=== PATIENT | female | born 1940 | race Caucasian/White ===

== ENCOUNTER 2022-07-27 08:19 | Observation (INO) | payer MEDICARE ==
[2022-07-27] MEDS ORDERED: SODIUM CHLORIDE 0.9% 500 ML 500 ML IV STA (08:43)
[2022-07-27] MEDS ORDERED: MECLIZINE 25 MG TAB PO STA (08:45)
[2022-07-27] MEDS ORDERED: METOCLOPRAMIDE 5 MG/ML 2 ML VIAL IVP STA (08:47)
--- NOTE | 2022-07-27 08:56 | ED ---
General Adult HPI - General Chief complaint: Dizziness Stated complaint: vertigo Time Seen by Provider: 07/27/22 08:20 Source: patient, EMS, RN notes reviewed, old records reviewed Mode of arrival: EMS Limitations: no limitations - History of Present Illness Initial comments: This is an 82-year-old female presents emergency Department complaining of bruce sampson. Patient states started at the end of June and she wants R primary medical care doctor and they cleaned out her ears and gave her Antivert did seem to help. Patient states however this morning she woke up at 3 AM and she was spinning and very nauseated and began to vomit. Patient denies any headache. Patient denies any numbness weakness. Patient states he Antivert today did not help. Patient denies any ear pain decreased hearing or tinnitus. Patient denies any chest pain or palpitations. Patient said difficulty breathing shortest breath per patient has any abdominal pain. - Related Data Allergies Allergy/AdvReac Type Severity Reaction Status Date / Time No Known Allergies Allergy Verified 07/27/22 08:25 Review of Systems ROS Statement: Those systems with pertinent positive or pertinent negative responses have been documented in the HPI. ROS Other: All systems not noted in ROS Statement are negative. Past Medical History Past Medical History: Hyperlipidemia Additional Past Medical History / Comment(s): glaucoma History of Any Multi-Drug Resistant Organisms: None Reported Past Surgical History: Cholecystectomy, Tonsillectomy Past Psychological History: No Psychological Hx Reported Smoking Status: Never smoker Past Alcohol Use History: Occasional Past Drug Use History: None Reported General Exam - General Exam Comments Initial Comments: GENERAL: Patient is well-developed and well-nourished. Patient is nontoxic and well- hydrated and is in mild distress. ENT: Neck is soft and supple. No significant lymphadenopathy is noted. Oropharynx is clear. Moist mucous membranes. Neck has full range of motion without eliciting any pain. EYES: The sclera were anicteric and conjunctiva were pink and moist. Extraocular movements were intact and pupils were equal round and reactive to light. Eyelids were unremarkable. PULMONARY: Unlabored respirations. Good breath sounds bilaterally. No audible rales rhonchi or wheezing was noted. CARDIOVASCULAR: There is a regular rate and rhythm without any murmurs gallops or rubs. ABDOMEN: Soft and nontender with normal bowel sounds. SKIN: Skin is clear with no lesions or rashes and otherwise unremarkable. NEUROLOGIC: Patient is alert and oriented x3. Cranial nerves II through XII are grossly intact. Motor and sensory are also intact. Normal speech, volume and content. Symmetrical smile. Finger to nose testing is good bilaterally MUSCULOSKELETAL: Normal extremities with adequate strength and full range of motion. LYMPHATICS: No significant lymphadenopathy is noted PSYCHIATRIC: Normal psychiatric evaluation. Limitations: no limitations Course Vital Signs 07/27/22 08:20 Temperature 97.2 F L Pulse Rate 66 Respiratory 16 Rate Blood Pressure 176/77 O2 Sat by Pulse 99 Oximetry Medical Decision Making - Medical Decision Making EKG was interpreted by myself shows a sinus rhythm at 63 bpm NJ interval 150 QRS 190 QT intervals 436 QTC is 444. Patient's EKG shows Q waves from V1 through V3. Patient has no chest pain and has not expressed any chest pain recently. Patient also denies any shortness of breath. Was pt. sent in by a medical professional or institution (, PA, SELF DEFENSE INSTRUCTOR, urgent care, hospital, or usp...) When possible be specific @ -No Did you speak to anyone other than the patient for history (EMS, parent, family, police, friend...)? What history was obtained from this source @ -No Did you review nursing and triage notes (agree or disagree)? Why? @ -I reviewed and agree with nursing and triage notes Were old charts reviewed (outside hosp., previous admission, EMS record, old EKG, old radiological studies, urgent care reports/EKG's, usp records)? Report findings @ -No old charts were reviewed Differential Diagnosis (chest pain, altered mental status, abdominal pain women, abdominal pain men, vaginal bleeding, weakness, fever, dyspnea, syncope, headache, dizziness, GI bleed, back pain, seizure, CVA, palpatations, mental health, musculoskeletal)? @ -Differential Dizziness: Benign paroxysmal positional Vertigo, Menieres disease, otitis media, acoustic neuroma, vertebrobasilar insufficiency, cerebellar stroke, encephalitis, hypovolemic, arrhythmia, coronary artery syndrome, anemia, this is not meant to be an all-inclusive list EKG interpreted by me (3pts min.). @ -As above X-rays interpreted by me (1pt min.). @ -Chest x-ray was interpreted by myself shows no acute abnormality. CT interpreted by me (1pt min.). @ -CT of the brain was interpreted by myself. It showed no acute abnormality U/S interpreted by me (1pt. min.). @ -None done What testing was considered but not performed or refused? (CT, X-rays, U/S, labs)? Why? @ -None What meds were considered but not given or refused? Why? @ -None Did you discuss the management of the patient with other professionals (professionals i.e. , PA, SELF DEFENSE INSTRUCTOR, lab, RT, psych nurse, pediatric social worker, water and sewer systems superintendent, teacher, complaint evaluation officer, case mgr)? Give summary @ -I spoke with the [facility] agreed to admit the patient and the patient wrote admitting orders Was smoking cessation discussed for >3mins.? @ -No Was critical care preformed (if so, how long)? @ -No Were there social determinants of health that impacted care today? How? (Homelessness, low income, unemployed, alcoholism, drug addiction, transportation, low edu. Level, literacy, decrease access to med. care, assisted, rehab)? @ -No Was there de-escalation of care discussed even if they declined (Discuss DNR or withdrawal of care, Hospice)? DNR status @ -No What co-morbidities impacted this encounter? (DM, HTN, Smoking, COPD, CAD, Cancer, CVA, ARF, Chemo, Hep., AIDS, mental health diagnosis, sleep apnea, morbid obesity)? @ -None Was patient admitted / discharged? Hospital course, mention meds given and [place], prescriptions, significant lab abnormalities, going to OR and other pertinent info. @ -Patient came in with vertigo-like symptoms. She received Antivert and Valium and Reglan as well as a fluid bolus it did not help. I gave the patient scopolamine patch. That did not help. Patient had a CAT scan and chest x-ray both negative. Patient stated that she could not because she was too off balance and was afraid she would follow herself. Undiagnosed new problem with uncertain prognosis? @ -No Drug Therapy requiring intensive monitoring for toxicity (Heparin, Nitro, Insulin, Cardizem)? @ -No Were any procedures done? @ -No Diagnosis/symptom? @ -Vertigo intractable Acute, or Chronic, or Acute on Chronic? @ -Acute Uncomplicated (without systemic symptoms) or Complicated (systemic symptoms)? @ -Complicated Side effects of treatment? @ -No Exacerbation, Progression, or Severe Exacerbation? @ -No Poses a threat to life or bodily function? How? (Chest pain, [place], [place], pneumonia, PE, COPD, DKA, ARF, appy, cholecystitis, CVA, Diverticulitis, Homicidal, Suicidal, threat to staff... and all critical care pts) @ -No - Lab Data Result diagrams: 07/27/22 08:56 07/27/22 08:56 Lab Results 07/27/22 07/27/22 07/27/22 Range/Units 08:56 08:56 08:56 WBC 9.8 (3.8-10.6) k/uL RBC 4.92 (3.80-5.40) m/uL Hgb 14.6 (11.4-16.0) gm/dL Hct 42.9 (34.0-46.0) % MCV 87.3 (80.0-100.0) fL MCH 29.6 (25.0-35.0) pg MCHC 33.9 (31.0-37.0) g/dL RDW 12.5 (11.5-15.5) % Plt Count 286 (150-450) k/uL MPV 7.2 Neutrophils % 79 % Lymphocytes % 14 % Monocytes % 4 % Eosinophils % 2 % Basophils % 1 % Neutrophils # 7.7 (1.3-7.7) k/uL Lymphocytes # 1.3 (1.0-4.8) k/uL Monocytes # 0.4 (0-1.0) k/uL Eosinophils # 0.2 (0-0.7) k/uL Basophils # 0.1 (0-0.2) k/uL PT 10.2 (9.0-12.0) sec INR 1.0 (<1.2) APTT 19.9 L (22.0-30.0) sec Sodium 138 (137-145) mmol/L Potassium 4.0 (3.5-5.1) mmol/L Chloride 104 (98-107) mmol/L Carbon Dioxide 27 (22-30) mmol/L Anion Gap 7 mmol/L BUN 19 H (7-17) mg/dL Creatinine 0.71 (0.52-1.04) mg/dL Est GFR (CKD-EPI)AfAm >90 (>60 ml/min/1.73 sqM) Est GFR (CKD-EPI)NonAf 81 (>60 ml/min/1.73 sqM) Glucose 135 H (74-99) mg/dL Calcium 9.4 (8.4-10.2) mg/dL Magnesium 2.1 (1.6-2.3) mg/dL Total Bilirubin 0.7 (0.2-1.3) mg/dL AST 32 (14-36) U/L ALT 32 (4-34) U/L Alkaline Phosphatase 56 (38-126) U/L Troponin I (0.000-0.034) ng/mL Total Protein 6.9 (6.3-8.2) g/dL Albumin 4.2 (3.5-5.0) g/dL 07/27/22 Range/Units 08:56 WBC (3.8-10.6) k/uL RBC (3.80-5.40) m/uL Hgb (11.4-16.0) gm/dL Hct (34.0-46.0) % MCV (80.0-100.0) fL MCH (25.0-35.0) pg MCHC (31.0-37.0) g/dL RDW (11.5-15.5) % Plt Count (150-450) k/uL MPV Neutrophils % % Lymphocytes % % Monocytes % % Eosinophils % % Basophils % % Neutrophils # (1.3-7.7) k/uL Lymphocytes # (1.0-4.8) k/uL Monocytes # (0-1.0) k/uL Eosinophils # (0-0.7) k/uL Basophils # (0-0.2) k/uL PT (9.0-12.0) sec INR (<1.2) APTT (22.0-30.0) sec Sodium (137-145) mmol/L Potassium (3.5-5.1) mmol/L Chloride (98-107) mmol/L Carbon Dioxide (22-30) mmol/L Anion Gap mmol/L BUN (7-17) mg/dL Creatinine (0.52-1.04) mg/dL Est GFR (CKD-EPI)AfAm (>60 ml/min/1.73 sqM) Est GFR (CKD-EPI)NonAf (>60 ml/min/1.73 sqM) Glucose (74-99) mg/dL Calcium (8.4-10.2) mg/dL Magnesium (1.6-2.3) mg/dL Total Bilirubin (0.2-1.3) mg/dL AST (14-36) U/L ALT (4-34) U/L Alkaline Phosphatase (38-126) U/L Troponin I <0.012 (0.000-0.034) ng/mL Total Protein (6.3-8.2) g/dL Albumin (3.5-5.0) g/dL Disposition Clinical Impression: Vertigo Disposition: ADMITTED IP TO THIS HOSP Referrals: None,Stated [REFERRING] - 1-2 days Time of Disposition: 10:43
[2022-07-27 09:06] LABS: Basophils # (A) 0.1 k/uL (0-0.2); Basophils % (A) 1 %; Eosinophils # (A) 0.2 k/uL (0-0.7); Eosinophils % (A) 2 %; HCT 42.9 % (34.0-46.0); HGB 14.6 gm/dL (11.4-16.0); Lymphocytes # (A) 1.3 k/uL (1.0-4.8); Lymphocytes % (A) 14 %; MCH 29.6 pg (25.0-35.0); MCHC 33.9 g/dL (31.0-37.0); MCV 87.3 fL (80.0-100.0); Mean Platelet Volume 7.2; Monocytes # (A) 0.4 k/uL (0-1.0); Monocytes % (A) 4 %; Neutrophils # (A) 7.7 k/uL (1.3-7.7); Neutrophils % (A) 79 %; Platelet Count 286 k/uL (150-450); RBC 4.92 m/uL (3.80-5.40); RDW 12.5 % (11.5-15.5); WBC 9.8 k/uL (3.8-10.6)
--- NOTE | 2022-07-27 09:11 | XR ---
EXAMINATION TYPE: XR chest 2V DATE OF EXAM: 07/27/2022 COMPARISON: NONE HISTORY: Chest pain. TECHNIQUE: Frontal and lateral views of the chest are obtained. FINDINGS: There is no focal air space opacity, pleural effusion, or pneumothorax seen. The cardiac silhouette size is within normal limits. The osseous structures are intact. Cholecystectomy clips a re present. IMPRESSION: No acute cardiopulmonary process.
[2022-07-27 09:19] LABS: ALT 32 U/L (4-34); AST 32 U/L (14-36); African American GFR (CKD) >90 (>60 ml/min/1.73 sqM); Albumin 4.2 g/dL (3.5-5.0); Alkaline Phosphatase 56 U/L (38-126); Anion Gap 7 mmol/L; Blood Urea Nitrogen 19 mg/dL (7-17); Calcium 9.4 mg/dL (8.4-10.2); Carbon Dioxide 27 mmol/L (22-30); Chloride 104 mmol/L (98-107); Glucose 135 mg/dL (74-99); Magnesium 2.1 mg/dL (1.6-2.3); Non-African American GFR(CKD) 81 (>60 ml/min/1.73 sqM); Sodium 138 mmol/L (137-145); Total Bilirubin 0.7 mg/dL (0.2-1.3); Total Protein 6.9 g/dL (6.3-8.2)
[2022-07-27 09:20] LABS: Prothrombin Time 10.2 sec (9.0-12.0)
--- NOTE | 2022-07-27 09:21 | CT ---
EXAMINATION TYPE: CT brain wo con CT DLP: 1091.4 mGycm, Automated exposure control for dose reduction was used. DATE OF EXAM: 07/27/2022 9:15 AM COMPARISON: None. CLINICAL INDICATION:Female, 82 years old with history of Ataxia, Dizziness. TECHNIQUE: Brain: Multiple axial CT images of the brain were obtained without IV contrast. Coronal and sagittal reformats reviewed. FINDINGS: Brain: Extra-axial spaces: No abnormal extra-axial fluid collections. Ventricular system: Within normal limits Cerebral parenchyma: No acute intraparenchymal hemorrhage or mass effect. The schilling-white junction is well differentiated. Cerebellum: Unremarkable. Mass effect: No evidence of midline shift. Intracranial vasculature: unremarkable Soft tissues: Normal. Calvarium/osseous structures: No depressed skull fracture. Paranasal sinuses and mastoid air cells: Minimal mucosal thickening of the bilateral maxillary sinuse s with minimal air-fluid level within the left sphenoid sinus. Visualized orbits: Bilateral aphakia. Scleral calcifications noted. IMPRESSION: No acute intracranial process.
[2022-07-27 09:31] LABS: Partial Thromboplastin Time 19.9 sec (22.0-30.0)
[2022-07-27] MEDS ORDERED: SCOPOLAMINE 1 MG/72 HR PATCH TRANSDERM STA (09:57)
[2022-07-27] MEDS ORDERED: SODIUM CHLORIDE 0.9% 1,000 ML IV ONE (10:48)
[2022-07-27] MEDS ORDERED: LORATADINE 10 MG TAB PO PRN (14:06)
[2022-07-27] MEDS: METOCLOPRAMIDE 5 MG/ML 2 ML VIAL IVP SCH ×2 (15:08→20:17)
[2022-07-27] MEDS: MECLIZINE 12.5 MG TAB PO SCH ×3 (15:09→20:20)
[2022-07-27] MEDS ORDERED: LORazepam 2 MG/ML INJ IV STA (15:20)
--- NOTE | 2022-07-27 15:34 | P.HPIM ---
History of Present Illness H&P Date: 07/27/22 This is a very pleasant 82-year-old female who presented to the emergency department with intractable nausea and extreme dizziness. Patient reports she follows with Dr. Angelia robin's [employer] in the outpatient setting with past medical history of hyperlipidemia glaucoma. Patient reports she saw her last week for some dizziness and was given Antivert along with Zyrtec and had flushing of her ears done as she reports she often gets a wax buildup and has had them flushed before. Patient reports she felt better at first although woke up last night with extreme difficulty in getting up severe dizziness and difficulty in ambulating and called her neighbor for help in calling 911. EKG shows sinus rhythm, chest x-ray shows no acute cardiopulmonary process, and brain CT showed no acute intracranial process. Patient was admitted under observation for vertigo. Review Of Systems: Constitutional: No fever, no chills, no night sweats. No weight change. No weakness, fatigue or lethargy. No daytime sleepiness. EENT: No headache. No blurred vision or double vision, no loss of vision. No loss of Hearing, no ringing in the ears, no dizziness. No nasal drainage or congestion. No epistaxis. No sore throat. Reports some buildup of wax occasionally Lungs: No shortness of breath, cough, no sputum production. No wheezing. Cardiovascular: No chest pain, no lower extremity edema. No palpitations. No paroxysmal nocturnal dyspnea. No orthopnea. No lightheadedness or dizziness. No syncopal episodes. Abdominal: No abdominal pain. No nausea, vomiting. No diarrhea. No constipa tion. No bloody or tarry stools.. No loss of appetite. Genitourinary: No dysuria, increased frequency, urgency. No urinary retention. Musculoskeletal: No myalgias. No muscle weakness, no gait dysfunction, no frequent falls. No back pain. No neck pain. Integumentary: No wounds, no lesions. No rash or pruritus. No unusual bruising. No change in hair or nails. Neurologic: No aphasia. No facial droop. No change in mentation. No head injury. No headache. No paralysis. No paresthesia. Reports extreme dizziness Psychiatric: No depression. No anxiety. No mood swings. Endocrine: No abnormal blood sugars. No weight change. No excessive sweating or thirst. No cold intolerance. PHYSICAL EXAMINATION: GENERAL: The patient is alert and oriented x4, Well developed, well nourished. HEENT: Pupils are round and equally reacting to light. EOMI. no scleral icterus. No conjunctival pallor. Normocephalic, atraumatic. No pharyngeal erythema. No thyromegaly. CARDIOVASCULAR: S1 and S2 muffled PULMONARY: diminished breath sounds bilaterally with no wheezing or rhonchi noted. ABDOMEN: soft. Nontender on exam. non-distended, normoactive bowel sounds. No palpable organomegaly. MUSCULOSKELETAL: No joint swelling or deformity. EXTREMITIES: No cyanosis, clubbing, or pedal edema. NEUROLOGICAL: Gross neurological examination did not reveal any focal deficits. SKIN: No rashes. Assessment: Dizziness, possible vertigo History of hyperlipidemia History of glaucoma Recent travels to [place] GI prophylaxis DVT prophylaxis Full code Plan: Recommend to continue with current medications and management and will consult neurology and appreciate input and recommendations with concerns of possible BPPV Patient did go to her primary care provider and had her ears flushed and started on Zyrtec along with Antivert although was as needed and was not taking them regularly and initially reports that worked at first although attempted to take it this morning when she woke up with severe nausea and dizziness and it did not help causing her to call 911 for help she felt she could not even stand up and walk Home medications reviewed and resumed Will await neurology recommendations, CT head was negative and labs were within normal limits Patient may likely need a referral to ENT in the outpatient setting and would recommend taking daily Zyrtec or Claritin The impression and plan of care has been dictated by Susy Chong, nurse practitioner as directed. Dr. Abebe MD I have performed a history and examination and MDM of this patient, discussed the same with the dictator, and agree with the dictator's assessment and plan as written ,documented as a scribe. Based on total visit time, I have performed more than 50% of the visit. Any additional findings or plans will be noted. Past Medical History Past Medical History: Hyperlipidemia Additional Past Medical History / Comment(s): glaucoma History of Any Multi-Drug Resistant Organisms: None Reported Past Surgical History: Cholecystectomy, Tonsillectomy Past Psychological History: No Psychological Hx Reported Smoking Status: Never smoker Past Alcohol Use History: Occasional Past Drug Use History: None Reported Medications and Allergies Home Medications Medication Instructions Recorded Confirmed Type Cetirizine HCl 10 mg PO DAILY PRN 07/27/22 07/27/22 History Latanoprost Ophth [Xalatan 0.005%] 1 drop BOTH EYES HS 07/27/22 07/27/22 History Meclizine HCl [Antivert] 25 mg PO Q8H PRN 07/27/22 07/27/22 History Simvastatin [Zocor] 20 mg PO HS 07/27/22 07/27/22 History Allergies Allergy/AdvReac Type Severity Reaction Status Date / Time No Known Allergies Allergy Verified 07/27/22 11:20 Physical Exam Vitals: Vital Signs Temp Pulse Resp BP Pulse Ox 07/27/22 11:00 87 20 164/80 97 07/27/22 10:00 86 20 132/65 99 07/27/22 09:00 82 18 176/77 99 07/27/22 08:20 97.2 F L 66 16 176/77 99 Intake and Output 07/26/22 07/27/22 07/27/22 22:59 06:59 14:59 Other: Weight 67.132 kg Results CBC & Chem 7: 07/27/22 08:56 07/27/22 08:56 Labs: Abnormal Lab Results - Last 24 Hours (Table) 07/27/22 07/27/22 Range/Units 08:56 08:56 APTT 19.9 L (22.0-30.0) sec BUN 19 H (7-17) mg/dL Glucose 135 H (74-99) mg/dL Thrombosis Risk Factor Assmnt - Choose All That Apply Each Factor Represents 1 point: Obesity (BMI >25) Each Risk Factor Represents 3 Points: Age 75 years or older Thrombosis Risk Factor Assessment Total Risk Factor Score: 4 Thrombosis Risk Factor Assessment Level: Moderate Risk Assessment and Plan Time with Patient: Greater than 30
[2022-07-27] MEDS ORDERED: ATORVASTATIN 10 MG TAB PO SCH (21:00)
[2022-07-27] MEDS ORDERED: LATANOPROST 0.005% OPHTH DROPS 2.5 ML BTL BOTH EYES SCH (21:00)
--- NOTE | 2022-07-27 23:42 | P.CNNES ---
History of Present Illness Consult date: 07/27/22 Requesting physician: Susy Chong Reason for Consult: Vertigo History of Present Illness: Patient is a 82-year-old female who came to the hospital by ambulance today at 8:19 AM for evaluation of new onset vertigo. Patient states that she was in [place] in the end of June, when on 07/17/2022 at 3 PM while she was doing nothing unusual, only packing her clothes to come back home when she suddenly became dizzy and everything started spinning and she threw up. The dizziness lasted for 3 hours. The next day she had the flight and she was able to make it back to [place]. She saw her primary physician on 07/19/2022, who felt it was excessive cerumen buildup in the ear. He flushed out wax from the ears. Subs equently patient felt that she had persistent water in her ears. She was not dizzy, but felt as if her ears are plugged as if if the water comes out she will be clear. She was otherwise doing fine until she woke up at 3 AM this morning and everything was spinning around. She was still in bed, just woke up when the vertigo occurred. As the symptoms persisted, states she called her neighbor at 6:30 AM who called the ambulance at around 7:30 AM. As per EMS flow sheet, when they arrived, patient was complaining of vertigo. Patient has very unsteady gait secondary to the vertigo. Patient was loaded into the ambulance. Vital signs at the scene was blood pressure 166/86, pulse rate 81 respiration 18, saturation 99%. Blood test shows normal CBC, PT/PTT, normal CMP. Troponin negative. CT head revealed no acute intracranial process. I personally reviewed CT head, agree with the findings. Mild mucosal thickening of the maxillary sinuses and slight air fluid level of the left sphenoid sinus. External auditory canals are clear. Chest x-ray revealed no acute cardiac or process. EKG shows sinus rhythm with intraventricular conduction delay. Patient states that she has had frequent wax buildup in her ears. The first time she had wax removed was 9 or 10 years ago. She had about 5 times in these years that she had ear wax removed and the last one was in February 2022. Home medications includes Claritin, simvastatin 20 mg, meclizine 25 mg and Xalatan. Patient denies diabetes or hypertension. She is a nonsmoker, drinks alcohol very occasionally. Review of Systems Constitutional: Denies chills, Denies fever Eyes: denies blurred vision, denies pain, denies loss of vision Ears: bilateral: decreased hearing, deny: ear discharge, earache Ears, nose, mouth and throat: Denies headache, Denies sore throat Cardiovascular: Denies chest pain, Denies shortness of breath Respiratory: Denies cough, Denies excessive sputum Gastrointestinal: Denies abdominal pain, Denies diarrhea, Denies nausea, Denies vomiting Genitourinary: Denies dysuria, Denies hematuria Integumentary: Denies pruritus, Denies rash Neurological: Reports as per HPI Psychiatric: Denies anxiety, Denies depression Endocrine: Denies fatigue, Denies weight change Past Medical History Past Medical History: Hyperlipidemia Additional Past Medical History / Comment(s): glaucoma History of Any Multi-Drug Resistant Organisms: None Reported Past Surgical History: Cholecystectomy, Tonsillectomy Past Psychological History: No Psychological Hx Reported Smoking Status: Never smoker Past Alcohol Use History: Occasional Past Drug Use History: None Reported Medications and Allergies Home Medications Medication Instructions Recorded Confirmed Type Cetirizine HCl 10 mg PO DAILY PRN 07/27/22 07/27/22 History Latanoprost Ophth [Xalatan 0.005%] 1 drop BOTH EYES HS 07/27/22 07/27/22 History Meclizine HCl [Antivert] 25 mg PO Q8H PRN 07/27/22 07/27/22 History Simvastatin [Zocor] 20 mg PO HS 07/27/22 07/27/22 History Allergies Allergy/AdvReac Type Severity Reaction Status Date / Time No Known Allergies Allergy Verified 07/27/22 11:20 Physical Examination - Vital Signs Vital Signs: Vital Signs Temp Pulse Pulse Resp BP BP Pulse Ox 07/27/22 20:00 70 12 07/27/22 15:00 98.1 F 70 12 154/84 98 07/27/22 14:00 14 07/27/22 12:52 98.0 F 82 14 171/71 99 07/27/22 11:00 87 20 164/80 97 07/27/22 10:00 86 20 132/65 99 07/27/22 09:00 82 18 176/77 99 07/27/22 08:20 97.2 F L 66 16 176/77 99 Intake and Output 07/27/22 07/27/22 07/27/22 06:59 14:59 22:59 Intake Total 100 Balance 100 Intake: Oral 100 Other: Voiding Method Toilet Toilet # Voids 1 Weight 67.132 kg Patient is an elderly female, very pleasant, in no acute distress. Patient is alert awake oriented to time place and person. Speech and language functions are normal. Patient can name and repeat very well. No aphasia or dysarthria. Attention, concentration and fund of knowledge is adequate. On cranial nerve examination, pupils are equal, round and reacting to light, visual nunez are full on confrontation, with no neglect on double simultaneous depression. Extraocular muscles are intact with mild nystagmus to the left. Face is symmetric, tongue protrudes to the midline. Palatal elevation and sensation normal, hearing is very significantly decreased for finger rubbing, although mildly decreased for routine conversation. Her shoulder shrug normal, facial sensation normal. On muscle strength testing, there is no pronator drift and the strength is normal in arms and legs distally and proximally. Deep tendon reflexes are symmetric 2+ all over and plantars downgoing. Sensory to touch is equal with no neglect on double simultaneous stimulation. Cerebellar function showed no ataxia for [id number] testing. No dysdiadochokinesia. No ataxia for [id number] testing on either side. Tone and bulk of muscles normal. Gait deferred.. On general examination, there is no carotid bruit or murmur, S1-S2 audible. Chest is clear on consultation. Abdomen is soft nontender. No organomegaly, bowel sounds present. Peripheral pulses are present. No edema. Results - Laboratory Findings CBC and BMP: 07/27/22 08:56 07/27/22 08:56 Abnormal Lab Findings: Abnormal Labs 07/27/22 07/27/22 08:56 08:56 APTT 19.9 L BUN 19 H Glucose 135 H Assessment and Plan Assessment: * Vertigo, probably due to peripheral vestibular dysfunction. Possible labyrinthitis. * Status post cerumen disimpaction * Mild sinusitis (maxillary and left sphenoid) noted on CT head. * Elevated blood pressure, likely hypertension Plan: * Continue meclizine scheduled until symptoms goes away and then as needed. * Consider Medrol Dosepak. * Patient has mild sinusitis noted on CT head. Consider course of antibiotic. * Patient's blood pressure has been running high. Need to keep a watch, may need starting anti-hypertensive medication. * Check carotid Doppler. * Neurologically otherwise if carotid Doppler normal. Dr. Kirby will be available for any neurological concerns over the weekend. * Thank you for the consult.
[2022-07-28] MEDS: METOCLOPRAMIDE 5 MG/ML 2 ML VIAL IVP SCH ×2 (02:32→08:47)
--- NOTE | 2022-07-28 08:44 | US ---
EXAMINATION TYPE: US carotid duplex BILAT DATE OF EXAM: 07/28/2022 COMPARISON: NONE CLINICAL HISTORY: Vertigo. Vertigo. Hx hyperlipidemia TECHNIQUE: Carotid duplex ultrasound examination. Indirect Doppler criteria was utilized. FINDINGS: EXAM MEASUREMENTS: RIGHT: Peak Systolic Velocity (PSV) cm/sec ----- Right CCA: 86.4 ----- Right ICA: 83.4 ----- Right ECA: 61.6 ICA/CCA ratio: 1.0 RIGHT: End Diastole cm/sec ----- Right CCA: 22.6 ----- Right ICA: 14.5 ----- Right ECA: 4.9 LEFT: Peak Systolic Velocity (PSV) cm/sec ----- Left CCA: 92.5 ----- Left ICA: 73.2 ----- Left ECA: 94.0 ICA/CCA ratio: 0.8 LEFT: End Diastole cm/sec ----- Left CCA: 14.0 ----- Left ICA: 9.5 ----- Left ECA: 0.0 VERTEBRALS (direction of flow): Right Vertebral: Antegrade Left Vertebral: Antegrade Rhythm: Normal [employer] NOTES: Intimal thickening seen bilaterally. Some plaque seen within bilateral bulbs. No e levated velocities. IMPRESSION: 1. No significant stenosis of the common or internal carotid arteries bilaterally. 2. Minimal atherosclerotic disease of the carotid bulbs and proximal internal carotid arteries. Criteria for Assigning % of Stenosis / Diameter reduction (Estimation based on the indirect measurements of the internal carotid artery velocities (ICA PSV). 1. Normal (no stenosis)=ICA PSV < 125 cm/s: ratio < 2.0: ICA EDV<40 cm/s. 2. Less than 50% stenosis=ICA PSV < 125 cm/s: ratio < 2.0: ICA EDV<40 cm/s. 3. 50 to 69% stenosis=ICA PSV of 125 to 230 cm/s: ration 2.0 ? 4.0: ICA EDV 40-100 cm/s. 4. Greater than 70% stenosis to near occlusion= ICA PSV > 230 cm/s: ratio > 4.0: ICA EDV > 100 cm/s. 5. Near occlusion= ICA PSV velocities may be low or undetectable: variable ratio and ICA EDV. 6. Total occlusion=unable to detect flow.
[2022-07-28] MEDS: MECLIZINE 12.5 MG TAB PO SCH (08:47)
[2022-07-28 08:53] VITALS: BP 151/71; PULSE 72; RESP 18; TEMP 97.3
--- NOTE | 2022-07-28 11:25 | P.PN ---
Subjective Progress Note Date: 07/28/22 The patient is an 82-year-old female who is seen in neurologic follow- up on July 28, 2022, via telemedicine. The chart has been reviewed. Carotid Doppler results reveal minimal atherosclerotic disease, bilaterally. This morning, the patient reports feeling "95% better". She does notice mild symptoms when she attempts to get up from the bed. She denies symptoms with turning of her head. She does not report vertigo at this time. She says she feels just a little bit off when she is attempting to get up from bed. She reports taking Antivert this morning. She does also report that she continues to feel as if her right ear is plugged. She says she will take an antihistamine later. Objective - Vital Signs Vital signs: Vital Signs Temp 97.3 F L 07/28/22 07:00 Pulse 72 07/28/22 07:00 Resp 18 07/28/22 07:00 BP 151/71 07/28/22 07:00 Pulse Ox 96 07/28/22 08:02 FiO2 Intake & Output 07/27/22 07/28/22 07/28/22 18:59 06:59 18:59 Intake Total 100 118 Balance 100 118 Weight 67.132 kg Intake: Oral 100 118 Other: Voiding Method Toilet Toilet # Voids 1 1 1 - Exam Gen.: The patient is reclining in the bed. She is well-nourished, well- developed and in no acute distress. HEENT: Head is atraumatic, normocephalic. Fundus not visualized. There is no scleral icterus. Mucous members are moist. Neck: Supple Neurological examination Mental status: Patient awake, alert and oriented 3. Her speech is clear. Cranial nerves: Pupils are equal at 3 mm and reactive. Extraocular movements are intact. There is no nystagmus. There is no facial asymmetry. Motor: Strength is intact throughout - Labs CBC & Chem 7: 07/27/22 08:56 07/27/22 08:56 Assessment and Plan Assessment: Vertigo, probably due to peripheral vestibular dysfunction. Possible labyrinthitis-Resolved at this time * Status post cerumen disimpaction * Mild sinusitis (maxillary and left sphenoid) noted on CT head. * Elevated blood pressure, likely hypertension * Carotid Doppler results consistent with mild atherosclerotic disease Plan: 1. Continue meclizine as scheduled until symptoms have resolved. Then it may be used as needed. 2. Continue treatment of hypertension 3. Possible outpatient ENT evaluation for cerumen impaction and vertigo 4. The patient is neurologically stable for discharge Time with Patient: Less than 30 (25 minutes were spent in caring for this patient today including, obtaining a history, examining the patient, reviewing imaging, labs, chart documentation and creating this note)
--- NOTE | 2022-07-30 23:35 | P.DS ---
Providers Date of admission: 07/27/22 10:50 Expected date of discharge: 07/28/22 Attending physician: Laney Lomas Consults: 07/27/22 12:52 Consult Physician Urgent Consulting Provider: Jose Nieves Consult Reason/Comments: vertigo Do you want consulting provider notified?: Yes Primary care physician: Angelia Jerome Hospital Course: Final diagnosis Dizziness, possible vertigo History of hyperlipidemia History of glaucoma Acute sinusitis as noted on CT seasonal ALLERGIES Recent travels to [place] GI prophylaxis DVT prophylaxis Full code Discharge disposition Patient is being discharged in a stable condition with guarded prognosis to home. Patient will follow-up with Dr. Angelia Jerome in the outpatient setting upon discharge. Patient is to continue with short prednisone taper along with Zyrtec and Augmentin with close outpatient follow-up with neurology and primary care provider as scheduled. Total time taken is greater than 35 minutes. Hospital course This is a 82-year-old female who was recently admitted with intractable dizziness with concerns of vertigo. Patient evaluated by neurology with CT of the brain that was done showing some mild sinusitis in no acute process noted. Patient also having vertigo with extreme dizziness and was recently started on Antivert although as needed and will make scheduled 3 times daily for the next 1 week and then may use as needed and highly recommend ENT follow-up outpatient with resources provided. Patient has been cleared by consultations for discharge today. Please refer to neurology no for further HPI. Currently no reports of chest pain, shortness of breath, or palpitations. Patient is afebrile. No reports of nausea or vomiting and patient is tolerating diet. Patient will be discharged home today. Physical exam: Gen: This is a 82-year-old female who is awake, alert and oriented 3, well- developed, well-nourished HEENT: Head is atraumatic, normocephalic. Pupils equal, round. Sclerae is anict lilliana. NECK: Supple. No JVD. No lymphadenopathy. No thyromegaly. LUNGS: Clear to auscultation. No wheezes or rhonchi. No intercostal retractions. HEART: Regular rate and rhythm. No murmur. ABDOMEN: Soft. Bowel sounds are present. No masses. No tenderness. EXTREMITIES: No pedal edema. No calf tenderness. NEUROLOGICAL: Patient is awake, alert and oriented x3. Cranial nerves 2 through 12 are grossly intact. Please refer to medication reconciliation sheet for a list of medications. The impression and plan of care has been dictated by Susy Chong, Nurse Practitioner as directed. Dr. Abebe MD I have performed a history and examination and MDM of this patient, discussed the same with the dictator, and agree with the dictator's assessment and plan as written ,documented as a scribe. Based on total visit time, I have performed more than 50% of the visit. Patient Condition at Discharge: Fair Plan - Discharge Summary New Discharge Prescriptions: New Meclizine [Antivert] 12.5 mg PO TID #60 tab Metoclopramide [Reglan] 5 mg PO TID PRN #30 tab PRN Reason: Nausea Amoxic-Pot Clav 875-125Mg [Augmentin 875-125] 1 tab PO Q12HR 7 Days #14 tab methylPREDNISolone Dose Pack [Medrol Dose Pack] 4 mg PO DIRECTED #1 packet Continue Latanoprost Ophth [Xalatan 0.005%] 1 drop BOTH EYES HS Cetirizine HCl 10 mg PO DAILY PRN PRN Reason: Allergy Symptoms Simvastatin [Zocor] 20 mg PO HS Changed Meclizine HCl [Antivert] 12.5 mg PO Q8H PRN #0 PRN Reason: Vertigo Discharge Medication List Cetirizine HCl 10 mg PO DAILY PRN 07/27/22 [History] Latanoprost Ophth [Xalatan 0.005%] 1 drop BOTH EYES HS 07/27/22 [History] Simvastatin [Zocor] 20 mg PO HS 07/27/22 [History] Amoxic-Pot Clav 875-125Mg [Augmentin 875-125] 1 tab PO Q12HR 7 Days #14 tab 07/28/22 [Rx] Meclizine HCl [Antivert] 12.5 mg PO Q8H PRN #0 07/28/22 [Rx] Meclizine [Antivert] 12.5 mg PO TID #60 tab 07/28/22 [Rx] Metoclopramide [Reglan] 5 mg PO TID PRN #30 tab 07/28/22 [Rx] methylPREDNISolone Dose Pack [Medrol Dose Pack] 4 mg PO DIRECTED #1 packet 07/28/22 [Rx] Follow up Appointment(s)/Referral(s): Angelia Jerome MD [Primary Care Provider] - 1 Week Jerald Green MD [STAFF PHYSICIAN] - 1 Week Patient Instructions/Handouts: Sinusitis (GEN), Vertigo (DC) Activity/Diet/Wound Care/Special Instructions: Activity Limited until follow-up Follow-up with primary care provider and discharged Continue taking medications as prescribed Follow-up with ENT outpatient Discharge Disposition: HOME SELF-CARE
== END 2022-07-28 12:55 | disposition home or self-care (01) ==
LOC: EC 08:19 → 6NMEDSUR 10:50
PROVIDERS: ADMIT Hospitalist; ATTEND Hospitalist
DX: R42 Dizziness and giddiness (principal); E78.5 Hyperlipidemia, unspecified; H40.9 Unspecified glaucoma; J01.90 Acute sinusitis, unspecified; J30.2 Other seasonal allergic rhinitis; R26.81 Unsteadiness on feet; Z90.49 Acquired absence of other specified parts of digestive tract; Z79.899 Other long term (current) drug therapy
CPT/HCPCS: 96376 ×2; 96361 ×2; 96374; 96375; 99285; 36415; 94760; 93005; 80053; 83735; 84484; 85025; 85610; 85730; 71046; 93880; 70450; G0378 ×2; J2765 ×2; J3360

== ENCOUNTER 2022-08-03 09:45 | Observation (INO) | payer MEDICARE ==
[2022-08-03] MEDS ORDERED: METOCLOPRAMIDE 5 MG/ML 2 ML VIAL IVP STA (10:19)
[2022-08-03] MEDS ORDERED: SODIUM CHLORIDE 0.9% 500 ML 500 ML IV STA (10:24)
[2022-08-03] MEDS ORDERED: SCOPOLAMINE 1 MG/72 HR PATCH TRANSDERM ONE (10:35)
--- NOTE | 2022-08-03 10:43 | ED ---
Dizziness HPI - General Chief Complaint: Dizziness Stated Complaint: Dizziness Time Seen by Provider: 08/03/22 10:00 Source: patient, RN notes reviewed Mode of arrival: ambulatory Limitations: no limitations, physical limitation - History of Present Illness Initial Comments: This is an 82-year-old female who presents to the emergency department for dizzi ness. Patient was admitted here from 07/27-07/28 for intractable nausea and vomiting related to vertigo. She was discharged with a prescription for meclizine. States that this has been effective for the most part, however this morning, the dizziness became severe again and was not controlled with the meclizine. The dizziness feels the same as the prior vertigo sensation. The dizziness is positional. She does not have a room spinning sensation, but describes this as her "head coming out of water". She has associated nausea, however she did not take the Reglan as prescribed. She was told to follow up with ENT, however she cannot get an appointment until next month. Denies any chest pain, shortness of breath, ear pain, hearing loss, or drainage from the ears. Denies any fevers, chills, sore throat, cough, dyspnea, chest pain, palpitations, abdominal pain, nausea, vomiting, diarrhea, back pain, or headaches. MD Complaint: dizziness History of Same: Yes - Related Data Home Medications Medication Instructions Recorded Confirmed Cetirizine HCl 10 mg PO DAILY PRN 07/27/22 08/03/22 Latanoprost Ophth [Xalatan 0.005%] 1 drop BOTH EYES HS 07/27/22 08/03/22 Simvastatin [Zocor] 20 mg PO HS 07/27/22 08/03/22 Meclizine [Antivert] 12.5 mg PO TID PRN 08/03/22 08/03/22 Previous Rx's Medication Instructions Recorded Metoclopramide [Reglan] 5 mg PO TID PRN #30 tab 07/28/22 Allergies Allergy/AdvReac Type Severity Reaction Status Date / Time No Known Allergies Allergy Verified 08/03/22 11:10 Review of Systems ROS Statement: Those systems with pertinent positive or pertinent negative responses have been documented in the HPI. ROS Other: All systems not noted in ROS Statement are negative. Past Medical History Past Medical History: Hyperlipidemia Additional Past Medical History / Comment(s): glaucoma, vertigo, History of Any Multi-Drug Resistant Organisms: None Reported Past Surgical History: Cholecystectomy, Tonsillectomy Past Psychological History: No Psychological Hx Reported Smoking Status: Never smoker Past Alcohol Use History: Occasional Past Drug Use History: None Reported General Exam Limitations: no limitations, physical limitation General appearance: alert, in no apparent distress Head exam: Present: atraumatic, normocephalic, normal inspection Eye exam: Present: normal appearance, PERRL, EOMI. Absent: scleral icterus, conjunctival injection, periorbital swelling ENT exam: Present: TM's normal bilaterally, normal external ear exam Respiratory exam: Present: normal lung sounds bilaterally. Absent: respiratory distress, wheezes, rales, rhonchi, stridor Cardiovascular Exam: Present: regular rate, normal rhythm, normal heart sounds. Absent: systolic murmur, diastolic murmur, rubs, gallop, clicks Neurological exam: Present: alert, oriented X3, CN II-XII intact Psychiatric exam: Present: normal affect, normal mood Skin exam: Present: warm, dry, intact, normal color. Absent: rash Course Vital Signs 08/03/22 08/03/22 08/03/22 09:45 11:54 12:31 Temperature 97.8 F Pulse Rate 65 77 82 Respiratory 18 18 17 Rate Blood Pressure 171/87 151/79 139/62 O2 Sat by Pulse 99 97 99 Oximetry 08/03/22 14:25 Temperature 97.2 F L Pulse Rate 66 Respiratory 18 Rate Blood Pressure 139/62 O2 Sat by Pulse 98 Oximetry Medical Decision Making - Medical Decision Making This is an 82-year-old female who presents to the emergency department for dizziness. Was pt. sent in by a medical professional or institution? @ -No Did you speak to anyone other than the patient for history? @ -No Did you review nursing and triage notes? @ -Yes, and I agree, it is accurate with regards to the patient's symptoms. Were old charts reviewed? @ -Admission records from 07/27-07/28 including the computed tomography scan of the brain and carotid ultrasound. Differential Diagnosis? @ -Differential Dizziness: Benign paroxysmal positional Vertigo, Menieres disease, otitis media, acoustic neuroma, vertebrobasilar insufficiency, cerebellar stroke, encephalitis, hypovolemic, arrhythmia, coronary artery syndrome, anemia, this is not meant to be an all-inclusive list EKG interpreted by me (3pts min.)? @ -Sinus bradycardia. Ventricular rate 59 beats per minute, VT interval 166 m s, QRS duration 121 ms, QTC 434 ms. What testing was considered but not performed? (CT, X-rays, U/S, labs)? Why? @ -None What meds were considered but not given? Why? @ -None Did you discuss the management of the patient with other professionals? @ -Yes, Dr. French with [facility] who accepts the patient for admission. Did you reconcile home meds? @ -No Was smoking cessation discussed for >3mins.? @ -No Was critical care preformed (if so, how long)? @ -No Were there social determinants of health that impacted care today? How? (Homelessness, low income, unemployed, alcoholism, drug addiction, transportation, low edu. Level, literacy, decrease access to med. care, residential, rehab)? @ -No Was there de-escalation of care discussed even if they declined? (Discuss DNR or withdrawal of care, Hospice)? @ -No What co-morbidities impacted this encounter? (DM, HTN, Smoking, COPD, CAD, Ca ncer, CVA, Hep., AIDS, mental health diagnosis, sleep apnea, morbid obesity)? @ -Vertigo Was patient admitted / discharged? @ -Admitted. Lab work obtained and found to be nonactionable. Urinalysis negative for signs of infection. Patient was initially treated with IV fluids, Reglan and a scopolamine patch. She had no relief in symptoms and was then given Zofran and meclizine. This only offered minor improvement. Any time she tried to move, she still felt dizzy and nauseous. Patient does live alone and is uncomfortable going home as a result of this. Patient subsequently admitted to medicine for the intractable dizziness likely associated with vertigo. Neurology consult placed per admitting team request. Undiagnosed new problem with uncertain prognosis? @ -None Drug Therapy requiring intensive monitoring for toxicity (Heparin, Nitro, Insulin, Cardizem)? @ -None Were any procedures done? @ -None Diagnosis/symptom? @ -Vertigo, intractable dizziness Acute, or Chronic, or Acute on Chronic? @ -Acute Uncomplicated (without systemic symptoms) or Complicated (systemic symptoms)? @ -Complicated Side effects of treatment? @ -None Exacerbation, Progression, or Severe Exacerbation] @ -Not applicable Poses a threat to life or bodily function? @ -Yes Return precautions reviewed in depth, the patient is instructed to return to the emergency department with any new, worsening, or concerning symptoms. Patient verbalized understanding. This case was discussed in detail with the attending ED physician, Dr. Gil. Presentation, findings, and treatment plan discussed in detail as well. - Lab Data Result diagrams: 08/03/22 10:37 08/03/22 10:37 Lab Results 08/03/22 08/03/22 08/03/22 Range/Units 10:37 10:37 10:37 WBC 9.7 (3.8-10.6) k/uL RBC 4.90 (3.80-5.40) m/uL Hgb 14.1 (11.4-16.0) gm/dL Hct 43.0 (34.0-46.0) % MCV 87.7 (80.0-100.0) fL MCH 28.7 (25.0-35.0) pg MCHC 32.7 (31.0-37.0) g/dL RDW 12.6 (11.5-15.5) % Plt Count 281 (150-450) k/uL MPV 7.4 Neutrophils % 75 % Lymphocytes % 15 % Monocytes % 6 % Eosinophils % 2 % Basophils % 0 % Neutrophils # 7.3 (1.3-7.7) k/uL Lymphocytes # 1.5 (1.0-4.8) k/uL Monocytes # 0.6 (0-1.0) k/uL Eosinophils # 0.2 (0-0.7) k/uL Basophils # 0.0 (0-0.2) k/uL Sodium 136 L (137-145) mmol/L Potassium 4.3 (3.5-5.1) mmol/L Chloride 102 (98-107) mmol/L Carbon Dioxide 31 H (22-30) mmol/L Anion Gap 3 mmol/L BUN 21 H (7-17) mg/dL Creatinine 0.70 (0.52-1.04) mg/dL Est GFR (CKD-EPI)AfAm >90 (>60 ml/min/1.73 sqM) Est GFR (CKD-EPI)NonAf 82 (>60 ml/min/1.73 sqM) Glucose 103 H (74-99) mg/dL Plasma Lactic Acid Bi (0.7-2.0) mmol/L Calcium 9.0 (8.4-10.2) mg/dL Total Bilirubin 0.9 (0.2-1.3) mg/dL AST 47 H (14-36) U/L ALT 40 H (4-34) U/L Alkaline Phosphatase 60 (38-126) U/L Troponin I (0.000-0.034) ng/mL Total Protein 6.7 (6.3-8.2) g/dL Albumin 4.1 (3.5-5.0) g/dL Urine Color Light Yellow Urine Appearance Clear (Clear) Urine pH 6.5 (5.0-8.0) Ur Specific [place] 1.007 (1.001-1.035) Urine Protein Negative (Negative) Urine Glucose (UA) Negative (Negative) Urine Ketones Negative (Negative) Urine Blood Negative (Negative) Urine Nitrite Negative (Negative) Urine Bilirubin Negative (Negative) Urine Urobilinogen <2.0 (<2.0) mg/dL Ur Leukocyte Esterase Negative (Negative) 08/03/22 08/03/22 Range/Units 10:37 10:37 WBC (3.8-10.6) k/uL RBC (3.80-5.40) m/uL Hgb (11.4-16.0) gm/dL Hct (34.0-46.0) % MCV (80.0-100.0) fL MCH (25.0-35.0) pg MCHC (31.0-37.0) g/dL RDW (11.5-15.5) % Plt Count (150-450) k/uL MPV Neutrophils % % Lymphocytes % % Monocytes % % Eosinophils % % Basophils % % Neutrophils # (1.3-7.7) k/uL Lymphocytes # (1.0-4.8) k/uL Monocytes # (0-1.0) k/uL Eosinophils # (0-0.7) k/uL Basophils # (0-0.2) k/uL Sodium (137-145) mmol/L Potassium (3.5-5.1) mmol/L Chloride (98-107) mmol/L Carbon Dioxide (22-30) mmol/L Anion Gap mmol/L BUN (7-17) mg/dL Creatinine (0.52-1.04) mg/dL Est GFR (CKD-EPI)AfAm (>60 ml/min/1.73 sqM) Est GFR (CKD-EPI)NonAf (>60 ml/min/1.73 sqM) Glucose (74-99) mg/dL Plasma Lactic Acid Bi 1.2 (0.7-2.0) mmol/L Calcium (8.4-10.2) mg/dL Total Bilirubin (0.2-1.3) mg/dL AST (14-36) U/L ALT (4-34) U/L Alkaline Phosphatase (38-126) U/L Troponin I <0.012 (0.000-0.034) ng/mL Total Protein (6.3-8.2) g/dL Albumin (3.5-5.0) g/dL Urine Color Urine Appearance (Clear) Urine pH (5.0-8.0) Ur Specific [place] (1.001-1.035) Urine Protein (Negative) Urine Glucose (UA) (Negative) Urine Ketones (Negative) Urine Blood (Negative) Urine Nitrite (Negative) Urine Bilirubin (Negative) Urine Urobilinogen (<2.0) mg/dL Ur Leukocyte Esterase (Negative) Disposition Clinical Impression: Vertigo, Dizziness Disposition: ADMITTED IP TO THIS HOSP
[2022-08-03 11:19] LABS: Basophils % (A) 0 %; Eosinophils # (A) 0.2 k/uL (0-0.7); Eosinophils % (A) 2 %; HGB 14.1 gm/dL (11.4-16.0); Lymphocytes # (A) 1.5 k/uL (1.0-4.8); Lymphocytes % (A) 15 %; MCH 28.7 pg (25.0-35.0); MCHC 32.7 g/dL (31.0-37.0); MCV 87.7 fL (80.0-100.0); Mean Platelet Volume 7.4; Monocytes # (A) 0.6 k/uL (0-1.0); Monocytes % (A) 6 %; Neutrophils # (A) 7.3 k/uL (1.3-7.7); Neutrophils % (A) 75 %; Platelet Count 281 k/uL (150-450); RDW 12.6 % (11.5-15.5); WBC 9.7 k/uL (3.8-10.6)
[2022-08-03 11:30] LABS: ALT 40 U/L (4-34); AST 47 U/L (14-36); African American GFR (CKD) >90 (>60 ml/min/1.73 sqM); Albumin 4.1 g/dL (3.5-5.0); Alkaline Phosphatase 60 U/L (38-126); Anion Gap 3 mmol/L; Blood Urea Nitrogen 21 mg/dL (7-17); Carbon Dioxide 31 mmol/L (22-30); Chloride 102 mmol/L (98-107); Glucose 103 mg/dL (74-99); Non-African American GFR(CKD) 82 (>60 ml/min/1.73 sqM); Potassium 4.3 mmol/L (3.5-5.1); Sodium 136 mmol/L (137-145); Total Bilirubin 0.9 mg/dL (0.2-1.3); Total Protein 6.7 g/dL (6.3-8.2)
[2022-08-03] MEDS ORDERED: ONDANSETRON 4 MG/2 ML VIAL IVP STA (12:19)
[2022-08-03] MEDS ORDERED: MECLIZINE 12.5 MG TAB PO STA (12:19)
[2022-08-03 12:20] LABS: Appearance,Urine Clear (Clear); Bilirubin,Urine Negative (Negative); Blood,Urine Negative (Negative); Color,Urine Light Yellow; Glucose,Urine (UA) Negative (Negative); Ketones,Urine Negative (Negative); Leukocyte Esterase,Urine Negative (Negative); Nitrite,Urine Negative (Negative); PH, Urine 6.5 (5.0-8.0); Protein,Urine Negative (Negative); Specific Gravity,Urine 1.007 (1.001-1.035); Urobilinogen,Urine <2.0 mg/dL (<2.0)
[2022-08-03] MEDS ORDERED: NALOXONE 0.4 MG/ML 1 ML VIAL IV PRN (14:34)
[2022-08-03] MEDS ORDERED: KETOROLAC 15 MG/ML 1 ML VIAL IVP PRN (14:34)
[2022-08-03] MEDS ORDERED: IBUPROFEN 400 MG TAB PO PRN (14:34)
[2022-08-03] MEDS ORDERED: HYDROcodone/APAP 5-325MG 1 EACH TAB PO PRN (14:34)
[2022-08-03] MEDS ORDERED: ONDANSETRON 4 MG/2 ML VIAL IVP PRN (14:34)
[2022-08-03] MEDS ORDERED: ACETAMINOPHEN TAB 325 MG TAB PO PRN (14:34)
[2022-08-03] MEDS ORDERED: ONDANSETRON 4 MG TAB PO PRN (17:09)
--- NOTE | 2022-08-03 17:11 | P.CNNES ---
History of Present Illness Consult date: 08/03/22 Requesting physician: Mirlande Hogan Reason for Consult: intracrable dizziness History of Present Illness: This is an 82-year-old woman with dizziness since 07/17/2022 presented because of worsening of dizziness. Patient stated that in 07/17/2022 she had dizziness and she felt that the her head is spinning had nausea and one episode of vomiting and she presented to our facility on and was seen by my colleague Dr. 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 She stated that she was getting better with Antivert 12.5 mg daily and has not seen an ENT yet since has an appointment in August 2022. But today she noticed that her dizziness is worse and again she feels the dizziness is in her head she feels its at rest or moving around. She that feels nauseous but denies any vomiting. Denies any focal weakness, numbness any difficulty swallowing. He denies of any ringing in the ears or any new hearing loss. Denies any head trauma. Denies any falls. She felt like she needs it she needed assistance walking because of the dizziness today. Please refer to Dr. Nieves note for 07/27/2022 visit. Some other workup during his hospital visit consisted of: CBC with differential and the urinalysis is normal. Review of Systems Review of system: The 12 point system was reviewed and apparent positive and negative per HPI. Past Medical History Past Medical History: Hyperlipidemia Additional Past Medical History / Comment(s): glaucoma, vertigo, History of Any Multi-Drug Resistant Organisms: None Reported Past Surgical History: Cholecystectomy, Tonsillectomy Past Anesthesia/Blood Transfusion Reactions: No Reported Reaction Past Psychological History: No Psychological Hx Reported Smoking Status: Never smoker Past Alcohol Use History: Occasional Past Drug Use History: None Reported Medications and Allergies Home Medications Medication Instructions Recorded Confirmed Type Cetirizine HCl 10 mg PO DAILY PRN 07/27/22 08/03/22 History Latanoprost Ophth [Xalatan 0.005%] 1 drop BOTH EYES HS 07/27/22 08/03/22 History Simvastatin [Zocor] 20 mg PO HS 07/27/22 08/03/22 History Metoclopramide [Reglan] 5 mg PO TID PRN #30 tab 07/28/22 08/03/22 Rx Meclizine [Antivert] 12.5 mg PO TID PRN 08/03/22 08/03/22 History Allergies Allergy/AdvReac Type Severity Reaction Status Date / Time No Known Allergies Allergy Verified 08/03/22 11:10 Physical Examination - Vital Signs Vital Signs: Vital Signs Temp Pulse Pulse Resp BP BP Pulse Ox 08/03/22 15:38 97.5 F L 76 16 149/75 97 08/03/22 14:25 97.2 F L 66 18 139/62 98 08/03/22 12:31 82 17 139/62 99 08/03/22 11:54 77 18 151/79 97 08/03/22 09:45 97.8 F 65 18 171/87 99 Intake and Output 08/03/22 08/03/22 08/03/22 06:59 14:59 22:59 Other: Weight 67.132 kg 67.132 kg GENERAL: The patient is lying in bed and is not in acute distress. CHEST: The heart rate is regular rate rhythm. No murmurs to auscultation. LUNG: Clear to auscultation bilaterally no wheezing noted throughout. Not labored breathing. ABDOMEN/GI: Bowel sounds present in all 4 quadrants. No tenderness to palpation throughout. NEUROLOGICAL: Higher mental function: The patient is awake, alert, oriented to self, place and time. Patient is following commands. No aphasia and no neglect. Cranial nerves: The pupils are round, equal and reactive to light and accommodation. Visual nunez are full to confrontation throughout. Extraocular movement is intact no nystagmus is noted. Facial sensation is normal to touch throughout. The facial strength is normal throughout. Hearing is moderately decreased bilaterally to hand rub. Tongue is midline and moved [id number] without any difficulty. No dysarthria is noted. Shoulder shrug is normal bilaterally. Motor: Gait: I had to assist but no swaying toward one side or other (she feels walking better today). The strength is 5 over 5 throughout. Normal tone and bulk. Cerebellum: Normal finger to nose bilaterally. Sensation: Sensation is normal to touch throughout. Reflexes (right/left): 2+ throughout. Plantars are mute bilaterally. Results - Laboratory Findings CBC and BMP: 08/03/22 10:37 08/03/22 10:37 Abnormal Lab Findings: Abnormal Labs 08/03/22 10:37 Sodium 136 L Carbon Dioxide 31 H BUN 21 H Glucose 103 H AST 47 H ALT 40 H Assessment and Plan Assessment: Intractable of vertigo and has been having dizziness since 07/17/2022 (she initially felt improvement during that time but felt today is worse). This seems more peripheral than central Hyperlipidemia History of glaucoma Plan: I ordered CT angiography of the head and neck. Patient refused MRI of the brain for now I started the patient on Antivert 25mg 1 tab tid scheduled. Also started her on Zofran 4mg every 8 hours PRN. I consulted the PT and OT for gait training Patient has an appointment with ENT in the August 2022 Will defer the rest of medical management to primary team. Thank you for the consultation. Time with Patient: Greater than 30
[2022-08-03] MEDS: MECLIZINE 25 MG TAB PO SCH ×2 (17:25→21:15)
--- NOTE | 2022-08-03 19:39 | CT ---
EXAMINATION TYPE: CT angio head neck CT DLP: 345.6 mGycm, Automated exposure control for dose reduction was used. DATE OF EXAM: 08/03/2022 7:30 PM COMPARISON: 07/27/2022. CLINICAL INDICATION:Female, 82 years old with history of vertigo, Vertigo TECHNIQUE: Axially acquired helical CT angiogram of the head and neck was obtained with contrast. Axi al images are supplemented with 3D reconstructions which [facility] NASCET criteria used. Contrast used:65cc mL of Isovue 370 with IV Contrast, Oral contrast used: None. FINDINGS: CTA HEAD: No evidence of acute intracranial hemorrhage, mass effect, or midline shift. The ventricles, sulci, a nd cisterns are unremarkable. Bilaterally aphakia. The visualized portions of the internal carotid arteries, middle cerebral arteries, anterior cerebral arteries, and posterior cerebral arteries are patent. origin of the right posterior cerebral a rtery. The basilar and vertebral arteries are patent. CTA NECK: Right Carotid System: The common carotid artery and external carotid artery are patent. The carotid bifurcation demonstrate s no evidence of hemodynamically significant stenosis. The remaining portions of the internal carotid artery demonstrate normal size without significant narrowing. Left Carotid System: The common carotid artery and external carotid artery are patent. The carotid bifurcation demonstrate s no evidence of hemodynamically significant stenosis. The remaining portions of the internal carotid artery demonstrate normal size without significant narrowing. Vertebral arteries are patent without evidence hemodynamically significant stenosis. There is a three-vessel aortic arch. The origins of the great vessels are patent. No evidence of hemo dynamically significant stenosis. Upper thorax: IMPRESSION: 1. No evidence of dissection of the cervical internal carotid arteries or vertebral arteries or any e vidence of significant stenosis at the carotid bifurcations. 2. No evidence of intracranial high-grade stenosis or intracranial aneurysm.
[2022-08-04] MEDS: MECLIZINE 25 MG TAB PO SCH ×3 (07:57→20:26)
--- NOTE | 2022-08-04 13:06 | P.PN ---
Subjective Progress Note Date: 08/04/22 The patient is seen at bedside and feels the Antivert and Zofran is helping with dizziness. She stated today when she wok-up she was feeling dizzy but has not received her medication at that time. Denies any new neurological issues. Objective - Vital Signs Vital signs: Vital Signs Temp 97.8 F 08/04/22 07:00 Pulse 70 08/04/22 07:00 Resp 18 08/04/22 07:00 BP 135/81 08/04/22 07:00 Pulse Ox 97 08/04/22 07:00 FiO2 Intake & Output 08/03/22 08/04/22 08/04/22 18:59 06:59 18:59 Intake Total 300 Balance 300 Weight 67.132 kg Intake: Oral 300 Other: Voiding Method Toilet Toilet # Voids 1 # Bowel Movements 1 - Exam GENERAL: The patient is lying in bed and is not in acute distress. NEUROLOGICAL: Higher mental function: The patient is awake, alert, oriented to self, place and time. Patient is following commands. No aphasia and no neglect. Cranial nerves: The pupils are round, equal and reactive to light and acco mmodation. Visual nunez are full to confrontation throughout. Extraocular movement is intact no nystagmus is noted. Facial sensation is normal to touch throughout. The facial strength is normal throughout. Tongue is midline and moved [id number] without any difficulty. No dysarthria is noted. Shoulder shrug is normal bilaterally. Motor: The strength is 5 over 5 throughout. Normal tone and bulk. Cerebellum: Normal finger to nose bilaterally. Sensation: Sensation is normal to touch throughout. Reflexes (right/left): 2+ throughout. Plantars are mute bilaterally. Some other workup during his hospital visit consisted of: CBC with differential and the urinalysis is normal. CTA head and neck: It is reported as no evidence of dissection of the cervical internal carotid arteries or vertebral artery or any evidence of significant stenosis at the carotid bifurcation. No evidence of intracranial high-grade stenosis or intracranial aneurysm. - Labs CBC & Chem 7: 08/03/22 10:37 08/03/22 10:37 Assessment and Plan Assessment: Intractable of vertigo and has been having dizziness since 07/17/2022 (she initially felt improvement during that time but felt today is worse). This seems more peripheral than central Hyperlipidemia History of glaucoma Plan: Patient continued to refuse MRI of the brain for now Continue Antivert 25mg 1 tab tid scheduled. Also started her on Zofran 4mg every 8 hours PRN. PT and OT for gait training are consulted. Patient has an appointment with ENT in the August 2022 Will defer the rest of medical management to primary team. The plan is discussed with the patient and primary team. Time with Patient: Less than 30
[2022-08-04] MEDS: ATORVASTATIN 10 MG TAB PO SCH (21:07)
[2022-08-04] MEDS: LATANOPROST 0.005% OPHTH DROPS 2.5 ML BTL BOTH EYES SCH (21:07)
--- NOTE | 2022-08-04 21:53 | P.HPIM ---
History of Present Illness H&P Date: 08/04/22 Patient is a 82-year-old female with a known history of hyperlipidemia, glaucoma and recently history of vertigo presents to ER with complaints of dizziness. Patient was recently admitted to the hospital from [facility] due to intractable nausea vomiting and vertigo. She was discharged from the hospital with meclizine as needed and was supposed to follow-up with ENT as an outpatient. However patient became more dizzy yesterday morning and was not controlled with meclizine. Patient felt like her head was down in the water. Also felt like clogged ears. Otherwise denies any complaints of headache. No chest pain or shortness of breath. No fever no chills. No cough or sputum production. Her symptoms started on July 17 when she was in [place]. She took the flight next day on July 18 back home and was seen by her PCP on . She did have cleaning of the ears and 1 week later she had another episode. She felt like off balance and dizziness. Ears are full and feeling spinning sensation of the room. She was given prednisone meclizine and antibiotics. Yesterday she did have symptoms again which made her to come to ER. On admission EKG showed sinus bradycardia CT angiogram of the head and neck showed no evidence of dissection of the cervical internal carotid arteries or vertebral arteries or any evidence of significant stenosis at the carotid bifurcations. No evidence of intracranial high-grade stenosis or intracranial aneurysm. Laboratory data WBC 9.7 hemoglobin 14.1 and platelets 281 Sodium 136 potassium 4.3 chloride 102 bicarb is 31 BUN 21 and creatinine 0.7 blood sugar is 103 AST 47 ALT 14 alk phos 60 and troponin less than 0.012. Review of Systems Constitutional: Patient denies any fever or chills . no Generalized weakness. Abdomen: Patient denied any nausea or vomiting or abd. pain Cardiovascular: Patient denies any chest pain or short of breath no palpitations. Respiratory: patient denied any cough . no sputum production. No shortness of breath Neurologic: Patient denied any numbness or tingling headache. Complains of dizz iness and room spinning sensation. Musculoskeletal: Patient denies any complaints of joint swelling or deformity. Skin: Negative Psychiatric: Negative Endocrine: No heat or cold intolerance. No recent weight gain. Genitourinary: No dysuria or hematuria. All other 14 point ROS negative except the above Past Medical History Past Medical History: Hyperlipidemia Additional Past Medical History / Comment(s): glaucoma, vertigo, History of Any Multi-Drug Resistant Organisms: None Reported Past Surgical History: Cholecystectomy, Tonsillectomy Past Anesthesia/Blood Transfusion Reactions: No Reported Reaction Past Psychological History: No Psychological Hx Reported Smoking Status: Never smoker Past Alcohol Use History: Occasional Past Drug Use History: None Reported Medications and Allergies Home Medications Medication Instructions Recorded Confirmed Type Cetirizine HCl 10 mg PO DAILY PRN 07/27/22 08/03/22 History Latanoprost Ophth [Xalatan 0.005%] 1 drop BOTH EYES HS 07/27/22 08/03/22 History Simvastatin [Zocor] 20 mg PO HS 07/27/22 08/03/22 History Metoclopramide [Reglan] 5 mg PO TID PRN #30 tab 07/28/22 08/03/22 Rx Meclizine [Antivert] 12.5 mg PO TID PRN 08/03/22 08/03/22 History Allergies Allergy/AdvReac Type Severity Reaction Status Date / Time No Known Allergies Allergy Verified 08/03/22 11:10 Physical Exam Vitals: Vital Signs Temp Pulse Pulse Resp BP BP Pulse Ox 08/04/22 07:00 97.8 F 70 18 135/81 97 08/04/22 02:49 97.9 F 64 16 128/78 96 08/03/22 20:00 71 16 08/03/22 19:32 97.7 F 71 16 136/75 98 08/03/22 15:38 97.5 F L 76 16 149/75 97 08/03/22 14:25 97.2 F L 66 18 139/62 98 08/03/22 12:31 82 17 139/62 99 08/03/22 11:54 77 18 151/79 97 Intake and Output 08/03/22 08/04/22 08/04/22 22:59 06:59 14:59 Intake Total 300 Balance 300 Intake: Oral 300 Other: Voiding Method Toilet Toilet # Voids 1 # Bowel Movements 1 Weight 67.132 kg PHYSICAL EXAMINATION: Patient is lying in the bed comfortably, no acute distress, awake alert and oriented.. HEENT: Normocephalic. Neck is supple. Pupils reactive. Nostrils clear. Oral cavity is moist. Neck reveals no JVD, carotid bruits, or thyromegaly. CHEST EXAMINATION: Trachea is central. Symmetrical expansion. Lung nunez clear to auscultation and percussion. CARDIAC: Normal S1, S2 with no gallops. No murmurs ABDOMEN: Soft. Bowel sounds present. Nontender. No organomegaly. No abdominal bruits. Extremities: reveal no edema. No clubbing or cyanosis Neurologically awake, alert, oriented x3 with well-coordinated movements. No focal deficits noted Skin: No rash or skin lesions. Psychiatric: Coperative. Nonsuicidal, Musculoskeletal: No joint swelling or deformity. Normal range of motion. Results CBC & Chem 7: 08/03/22 10:37 08/03/22 10:37 Labs: Abnormal Lab Results - Last 24 Hours (Table) 08/03/22 Range/Units 10:37 Sodium 136 L (137-145) mmol/L Carbon Dioxide 31 H (22-30) mmol/L BUN 21 H (7-17) mg/dL Glucose 103 H (74-99) mg/dL AST 47 H (14-36) U/L ALT 40 H (4-34) U/L Thrombosis Risk Factor Assmnt - DVT/VTE Prophylaxis DVT/VTE Prophylaxis: Pharmacologic Prophylaxis ordered - Choose All That Apply Any of the Below Risk Factors Present?: Yes Each Risk Factor Represents 3 Points: Age 75 years or older Thrombosis Risk Factor Assessment Total Risk Factor Score: 3 Thrombosis Risk Factor Assessment Level: Moderate Risk Assessment and Plan Assessment: Dizziness and vertigo with room spinning sensation. Likely benign paroxysmal positional vertigo. CT head on 07/27/2022 and carotid duplex was negative at that time. Hyperlipidemia Glaucoma DVT prophylaxis with heparin subcu Patient will be continued on meclizine 3 times daily for vertigo and continue with symptomatic management for nausea. Patient was also given a dose of Reglan while in the ER. Neurology is on board. Patient does not want to go for MRI at this time. Keila nue symptomatic management. Patient still having dizziness when getting out of bed and also off balance. Follow-up closely.
[2022-08-05] MEDS: MECLIZINE 25 MG TAB PO SCH ×3 (07:30→20:27)
[2022-08-05 09:06] LABS: African American GFR (CKD) >90 (>60 ml/min/1.73 sqM); Anion Gap 4 mmol/L; Blood Urea Nitrogen 16 mg/dL (7-17); Calcium 8.9 mg/dL (8.4-10.2); Carbon Dioxide 27 mmol/L (22-30); Chloride 106 mmol/L (98-107); Glucose 103 mg/dL (74-99); Non-African American GFR(CKD) 82 (>60 ml/min/1.73 sqM); Potassium 4.4 mmol/L (3.5-5.1); Sodium 137 mmol/L (137-145)
--- NOTE | 2022-08-05 13:22 | P.PN ---
Subjective Progress Note Date: 08/05/22 The patient states the vertigo is been controlled with Antivert but had episode earlier today that she was feeling dizzy and nauseous that was a bit worse but now is better. Denies of any focal weakness, visual disturbance. Objective - Vital Signs Vital signs: Vital Signs Temp 97.5 F L 08/05/22 07:00 Pulse 71 08/05/22 07:00 Resp 16 08/05/22 07:00 BP 155/82 08/05/22 07:00 Pulse Ox 98 08/05/22 07:00 FiO2 Intake & Output 08/04/22 08/05/22 08/05/22 18:59 06:59 18:59 Intake Total 118 100 Balance 118 100 Intake: Oral 118 100 Other: Voiding Method Toilet Toilet Toilet # Voids 2 1 - Exam GENERAL: The patient is lying in bed and is not in acute distress. NEUROLOGICAL: Higher mental function: The patient is awake, alert, oriented to self, place and time. Patient is following commands. No aphasia and no neglect. Cranial nerves: The pupils are round, equal and reactive to light and accommodation. Visual nunez are full to confrontation throughout. Extraocular movement is intact no nystagmus is noted. Facial sensation is normal to touch throughout. The facial strength is normal throughout. Tongue is midline and moved [id number] without any difficulty. No dysarthria is noted. Shoulder shrug is normal bilaterally. Motor: The strength is 5 over 5 throughout. Normal tone and bulk. Cerebellum: Normal finger to nose bilaterally. Sensation: Sensation is normal to touch throughout. Reflexes (right/left): 2+ throughout. Plantars are mute bilaterally. Some other workup during his hospital visit consisted of: CBC with differential and the urinalysis is normal. CTA head and neck: It is reported as no evidence of dissection of the cervical internal carotid arteries or vertebral artery or any evidence of significant stenosis at the carotid bifurcation. No evidence of intracranial high-grade benny nosis or intracranial aneurysm. - Labs CBC & Chem 7: 08/03/22 10:37 08/05/22 06:26 Labs: Abnormal Lab Results - Last 24 Hours (Table) 08/05/22 Range/Units 06:26 Glucose 103 H (74-99) mg/dL Assessment and Plan Assessment: Intractable of vertigo and has been having dizziness since 07/17/2022 (she initially felt improvement during that time but felt today is worse). This seems more peripheral than central Hyperlipidemia History of glaucoma Plan: Patient continued to refuse MRI of the brain for now. She states if continues to have severe dizziness tomorrow then will consider pursuing it. Continue Antivert 25mg 1 tab tid scheduled. Also started her on Zofran 4mg every 8 hours PRN. PT and OT for gait training are consulted. Patient has an appointment with ENT in the August 2022 Will defer the rest of medical management to primary team. The plan is discussed with the patient and primary team. Dr. Nieves will start neurology service tomorrow A.M. UPDATE: In the afternoon the patient has decided to pursue with MRI Brain. Time with Patient: Less than 30
[2022-08-05] MEDS: LATANOPROST 0.005% OPHTH DROPS 2.5 ML BTL BOTH EYES SCH (20:27)
[2022-08-05] MEDS: ATORVASTATIN 10 MG TAB PO SCH (20:27)
--- NOTE | 2022-08-05 23:48 | P.PN ---
Subjective Progress Note Date: 08/05/22 Patient is a 82-year-old female with a known history of hyperlipidemia, glaucoma and recently history of vertigo presents to ER with complaints of dizziness. Patient was recently admitted to the hospital from [facility] due to intractable nausea vomiting and vertigo. She was discharged from the hospital with meclizine as needed and was supposed to follow-up with ENT as an outpatient. However patient became more dizzy yesterday morning and was not controlled with meclizine. Patient felt like her head was down in the water. Also felt like clogged ears. Otherwise denies any complaints of headache. No chest pain or shortness of breath. No fever no chills. No cough or sputum production. Her symptoms started on July 17 when she was in [place]. She took the flight next day on July 18 back home and was seen by her PCP on . She did have cleaning of the ears and 1 week later she had another episode. She felt like off balance and dizziness. Ears are full and feeling spinning sensation of the room. She was given prednisone meclizine and antibiotics. Yesterday she did have symptoms again which made her to come to ER. On admission EKG showed sinus bradycardia CT angiogram of the head and neck showed no evidence of dissection of the cervical internal carotid arteries or vertebral arteries or any evidence of significant stenosis at the carotid bifurcations. No evidence of intracranial high-grade stenosis or intracranial aneurysm. Laboratory data WBC 9.7 hemoglobin 14.1 and platelets 281 Sodium 136 potassium 4.3 chloride 102 bicarb is 31 BUN 21 and creatinine 0.7 blood sugar is 103 AST 47 ALT 14 alk phos 60 and troponin less than 0.012. 08/05/2022 Patient is still complaining of dizziness and mostly leg sensation. Unable to walk without support. No complaints of headache. Patient also nauseous. Slightly improved compared to yesterday. Neurology recommends MRI of the brain. Patient is agreeable to get the test done today. PT OT consult and patient may need rehab transfer. Laboratory showed sodium 137 potassium 4.4 chloride 106 bicarb is 27 BUN 16 and creatinine 0.68 Current medications reviewed. Objective - Vital Signs Vital signs: Vital Signs Temp 97.5 F L 08/05/22 07:00 Pulse 71 08/05/22 07:00 Resp 16 08/05/22 07:00 BP 155/82 08/05/22 07:00 Pulse Ox 98 08/05/22 07:00 FiO2 Intake & Output 08/04/22 08/05/22 08/05/22 18:59 06:59 18:59 Intake Total 118 100 Balance 118 100 Intake: Oral 118 100 Other: Voiding Method Toilet Toilet Toilet # Voids 2 1 3 # Bowel Movements 2 - Exam PHYSICAL EXAMINATION: Patient is lying in the bed comfortably, no acute distress, awake alert and oriented.. HEENT: Normocephalic. Neck is supple. Pupils reactive. Nostrils clear. Oral cavity is moist. Neck reveals no JVD, carotid bruits, or thyromegaly. CHEST EXAMINATION: Trachea is central. Symmetrical expansion. Lung nunez clear to auscultation and percussion. CARDIAC: Normal S1, S2 with no gallops. No murmurs ABDOMEN: Soft. Bowel sounds present. Nontender. No organomegaly. No abdominal bruits. Extremities: reveal no edema. No clubbing or cyanosis Neurologically awake, alert, oriented x3 with well-coordinated movements. No focal deficits noted Skin: No rash or skin lesions. Psychiatric: Coperative. Nonsuicidal, Musculoskeletal: No joint swelling or deformity. Normal range of motion. - Labs CBC & Chem 7: 08/03/22 10:37 08/05/22 06:26 Labs: Abnormal Lab Results - Last 24 Hours (Table) 08/05/22 Range/Units 06:26 Glucose 103 H (74-99) mg/dL Assessment and Plan Assessment: Dizziness and vertigo with room spinning sensation. Likely benign paroxysmal positional vertigo. CT head on 07/27/2022 and carotid duplex was negative at that time. Hyperlipidemia Glaucoma DVT prophylaxis with heparin subcu Patient will be continued on meclizine 3 times daily for vertigo and continue with symptomatic management for nausea. Patient was also given a dose of Reglan while in the ER. Neurology is on board. Patient is ok to go for MRI today. Continue symptomatic management. Patient still having dizziness when getting out of bed and also off balance. Follow-up closely.
[2022-08-06] MEDS: MECLIZINE 25 MG TAB PO SCH ×3 (08:59→21:37)
[2022-08-06 09:06] LABS: African American GFR (CKD) 80.1 (60.0-200.0); Anion Gap 10.2 mmol/L (10.00-18.00); BUN/Creat Ratio 15.75 Ratio (12.00-20.00); Blood Urea Nitrogen 12.6 mg/dL (9.0-27.0); Calcium 9.3 mg/dL (8.7-10.3); Carbon Dioxide 26.8 mmol/L (20.0-27.5); Non-African American GFR(CKD) 69.1 (60.0-200.0); Potassium 4.5 mmol/L (3.5-5.5)
[2022-08-06] MEDS ORDERED: LORazepam 2 MG/ML INJ IV STA (10:04)
--- NOTE | 2022-08-06 13:09 | MR ---
EXAMINATION TYPE: MR brain wo/w con DATE OF EXAM: 08/06/2022 COMPARISON: CTA head and neck [address] brain July 27, 2022. HISTORY: Vertigo. TECHNIQUE: Multiplanar, multisequence images of the brain and brainstem is performed without and with IV contras t, utilizing 7 mL intravenous Gadavist . FINDINGS: Diffusion weighted images demonstrate no evidence of a recent infarct or other diffusion ab normality. There is no extra-axial fluid collection or significant white matter signal abnormality. The ventricular system and cisternal spaces are normal in size and appearance. The brain volume is age appropriate. Midline structures demonstrate normal morphology. The craniocervical junction appears within normal limits. Post contrast images demonstrate no abnormal enhancement. The dural venous sinuses appear pa tent. The visualized sinuses are clear and the globes are intact. No suspicious opacification of the mastoid air cells. IMPRESSION: Unremarkable study.
--- NOTE | 2022-08-06 13:44 | P.DS ---
Providers Date of admission: 08/03/22 14:34 Attending physician: Issa French MD Consults: 08/03/22 14:34 Consult Physician Urgent Consulting Provider: Shaq Wang Consult Reason/Comments: Intractable dizziness Do you want consulting provider notified?: Yes Primary care physician: Angelia Jerome [facility] Course: Final Diagnosis Dizziness and vertigo with room spinning sensation. Likely benign paroxysmal positional vertigo. Hyperlipidemia Glaucoma Mild elevated LFT's repeat outpatient Full Code Discharge Disposition Patient is stable for discharge to subacute rehab. Patient to continue on mecliz ine 25 mg TID as needed for symptoms of vertigo. Continue on antiemetics as well. Follow up with PCP on discharge. Patient also has an appointment with ENT on August 29, 2022 and patient advised to keep appointment. Recommend to repeat liver enzymes outpatient. Discharged to subacute rehab. Hospital Course Patient is a 82-year-old female with a known history of hyperlipidemia, glaucoma and recently history of vertigo presents to ER with complaints of dizziness. Patient was recently admitted to the hospital from due to intractable nausea vomiting and vertigo. She was discharged from the hospital with meclizine as needed and was supposed to follow-up with ENT as an outpatient. However patient became more dizzy yesterday morning and was not controlled with meclizine. Patient felt like her head was down in the water. Also felt like clogged ears. Her symptoms started on July 17 when she was in [place]. She took the flight next day on July 18 back home and was seen by her PCP on . She did have cleaning of the ears and 1 week later she had another episode. She felt like off balance and dizziness. Ears are full and feeling spinning sensation of the room. She was given prednisone meclizine and antibiotics. She had symptoms again which made her to come to ER. On admission EKG showed sinus bradycardia. CT angiogram of the head and neck showed no evidence of dissection of the cervical internal carotid arteries or vertebral arteries or any evidence of significant stenosis at the carotid bifurcations. No evidence of intracranial high-grade stenosis or intracranial aneurysm. Patient had brain MRI done which is an unremarkable study. Troponin is negative. Urinalysis is negative. Sodium is normal. Patient has been followed by neurology. She has been evaluated and recommended for subacute rehab on discharge. Patient does not feel safe for DC home. 08/06/2022 Patient is evaluated today up with physical therapy. She is ambulating with walker. Denies feelings of room spinning, however she does continue to report feeling of dizzy and also nausea. No chest pain, no shortness of breath, no palpitations. Lungs are clear, S1 S2 auscultated, abdomen is soft and nontender. Focal neurological exam is negative. Vitals are stable, temp of 97.4, heart rate 69, blood pressure 137/72, 98% room air. CBC is unremarkable, sodium 139, potassium 4.5, BUN 12.6, creatinine 0.8. She did have elevated AST and ALT of 47/40. Please see medication reconciliation for a list of current medication. Thank you for allowing us to participate in the care of this patient. The impression and plan of care has been dictated by Lisa De Luna, Nurse Practitioner as directed. Dr. Estephania MD I have performed a history and physical examination and medical decision making of this patient, discussed the same with the dictator, and agree with the dictators assessment and plan as written, documented as a scribe. Based on total visit time, I have performed more than 50% of this visit. Patient Condition at Discharge: Stable Plan - Discharge Summary Discharge Rx Participant: Yes New Discharge Prescriptions: New Meclizine [Antivert] 25 mg PO TID tab Acetaminophen Tab [Tylenol] 650 mg PO Q6HR PRN tab PRN Reason: Mild Pain Or Fever > 100.5 Ondansetron [Zofran] 4 mg PO Q8HR PRN tab PRN Reason: Nausea And Vomiting Continue Latanoprost Ophth [Xalatan 0.005%] 1 drop BOTH EYES HS Metoclopramide [Reglan] 5 mg PO TID PRN #30 tab PRN Reason: Nausea Cetirizine HCl 10 mg PO DAILY PRN PRN Reason: Allergy Symptoms Simvastatin [Zocor] 20 mg PO HS Discontinued Meclizine [Antivert] 12.5 mg PO TID PRN PRN Reason: Vertigo Discharge Medication List Cetirizine HCl 10 mg PO DAILY PRN 07/27/22 [History] Latanoprost Ophth [Xalatan 0.005%] 1 drop BOTH EYES HS 07/27/22 [History] Simvastatin [Zocor] 20 mg PO HS 07/27/22 [History] Metoclopramide [Reglan] 5 mg PO TID PRN #30 tab 07/28/22 [Rx] Acetaminophen Tab [Tylenol] 650 mg PO Q6HR PRN tab 08/06/22 [Rx] Meclizine [Antivert] 25 mg PO TID tab 08/06/22 [Rx] Ondansetron [Zofran] 4 mg PO Q8HR PRN tab 08/06/22 [Rx] Follow up Appointment(s)/Referral(s): Angelia Jerome MD [Primary Care Provider] - 1-2 days Activity/Diet/Wound Care/Special Instructions: Needs Neurology Clearance Keep your same appointment with ENT on August 29, 2022 Continue on meclizine 25 mg TID as needed Discharge Disposition: TRANSFER TO SNF/ECF
--- NOTE | 2022-08-06 19:25 | P.PN ---
Subjective Progress Note Date: 08/06/[address] Patient initially seen by Dr[address] Shaq Wang. Please refer to his note for details. Patient is a 82-year-old female, recently seen in consultation for vertigo, which was felt to be related to labyrinthitis. Patient came with similar symptoms. Patient had MRI of the brain performed. Patient states she is feeling better. She has not had seen ENT specialist yet. Patient had MRI performed. Objective - Vital Signs Vital signs: Vital Signs Temp 97.6 F 08/06/22 15:00 Pulse 68 08/06/22 15:00 Resp 16 08/06/22 15:00 BP 122/73 08/06/22 15:00 Pulse Ox 99 08/06/22 15:00 FiO2 Intake & Output 08/05/22 08/06/22 08/06/22 18:59 06:59 18:59 Intake Total 240 Balance 240 Intake: Oral 240 Other: Voiding Method Toilet Toilet # Voids 1 1 # Bowel Movements 2 - Exam Mental status, speech and language functions are normal. Cranial nerves are normal. Muscle strength normal. - Labs CBC & Chem 7: 08/03/22 10:37 08/06/22 02:55 Assessment and Plan Assessment: Intractable of vertigo and has been having dizziness since 07/17/2022 (she initially felt improvement during that time but felt today is worse). This seems more peripheral than central Hyperlipidemia History of glaucoma Plan: MRI of the brain with and without contrast are normal. I personally reviewed MRI, agree with the findings. Visualized paranasal sinuses, and external auditory canals are clear. Continue Antivert 25mg 1 tab tid scheduled. Also started her on Zofran 4mg every 8 hours PRN. PT and OT for gait training are consulted. Patient has an appointment with ENT in the August 2022 Will defer the rest of medical management to primary team. Neurologically clear for discharge. Informed primary team.
[2022-08-06] MEDS: LATANOPROST 0.005% OPHTH DROPS 2.5 ML BTL BOTH EYES SCH (21:37)
[2022-08-06] MEDS: ATORVASTATIN 10 MG TAB PO SCH (21:37)
[2022-08-07 07:56] VITALS: BP 138/84; PULSE 80; RESP 16; TEMP 97.6
[2022-08-07] MEDS: MECLIZINE 25 MG TAB PO SCH (08:39)
== END 2022-08-07 14:23 ==
LOC: EC 09:45 → 6NMEDSUR 14:34
PROVIDERS: ADMIT Internal Medicine; ATTEND Internal Medicine
DX: R42 Dizziness and giddiness (principal); R11.0 Nausea; R00.1 Bradycardia, unspecified; E78.5 Hyperlipidemia, unspecified; H40.9 Unspecified glaucoma; R74.8 Abnormal levels of other serum enzymes; Z90.49 Acquired absence of other specified parts of digestive tract; Z98.890 Other specified postprocedural states; Z79.899 Other long term (current) drug therapy
CPT/HCPCS: 96375; 96374; 99285; 36415; 93005; 97530 ×2; 97162; 97166; 80053; 80048 ×2; 83605; 84484; 85025; 81003; 70496; 70498; 70553; G0378 ×5; J2060; J2765; J2405; Q9967; A9585

== ENCOUNTER → 2023-01-09 | Outpatient (CLI) | payer MEDICARE ==
--- NOTE | 2023-01-09 19:14 | BD ---
EXAMINATION TYPE: Axial Bone Density DATE OF EXAM: 01/09/2023 CLINICAL HISTORY: 82 years old Female. ICD-10 CODE: Z78.0 POST MENOPAUSAL Height: 5 ft 1/2 in Weight: 152 FRAX RISK QUESTIONS: Alcohol (3 or more units per day): no Family History (Parent hip fracture): no Glucocorticoids (More than 3mos): no (Ex: prednisone, prednisolone, methylprednisolone, dexamethasone, and hydrocortisone). History of Fracture in Adulthood: no Secondary Osteoporosis: 1. Type 1 Diabetes: no 2. Hyperthyroidism: no 3. Menopause before 45: yes 4. Malnutrition: no 5. Chronic liver disease: no Rheumatoid Arthritis: no Current Tobacco Use: no RISK FACTORS HISTORY OF: Surgery to Spine/Hip(right/left)/Wrist (right/left): no Family History of Osteoporosis: no Active: yes Diet low in dairy products/other sources of calcium: no Postmenopausal woman: yes Take estrogen and/or progesterone medications: no Lost more than 2 inches in height since high school: no Frequent falls: no Poor Health: good Hyperparathyroidism: no Adrenal Insufficiency: no MEDICATIONS: Additional Medications: Simvastatin, eye drops, Additional History: EXAM MEASUREMENTS: Bone mineral densitometry was performed using the [employer] System. Bone mineral density as measured about the Lumbar spine is: ----- L1-L4(G/cm2): 1.314 T Score Values are as follows: ----- L1: 0.3 ----- L2: 0.0 ----- L3: 1.9 ----- L4: 1.9 ----- L1-L4: 1.1 Z Score Values are as follows: ----- L1: 2.1 ----- L2: 1.7 ----- L3: 3.6 ----- L4: 3.7 ----- L1-L4: 2.8 prev done in [facility] Bone mineral density about the R hip (g/cm2): 0.768 Bone mineral density about the L hip (g/cm2): 0.758 T Score values are as follows: -----R Neck: -1.9 -----L Neck: -2.0 -----R Total: -0.6 -----L Total: -0.5 Z Score values are as follows: -----R Neck: 0.2 -----L Neck: 0.1 -----R Total: 1.4 -----L Total: 1.5 prev done in [facility] FRAX%s: The graph provided illustrates a 15.7 % chance for a major osteoporotic fx and a 4.7 % chance for the hips probability for fx in 10 years time. IMPRESSION: Normal (Values between +1 and -1 indicate normal bone mass). Consider repeating this study in 5 year s or sooner if there is some new clinical indication. NOTE: T-SCORE=SD OF THE YOUNG ADULT MEAN.
--- NOTE | 2023-01-10 10:40 | MM ---
Reason for Exam: Screening (asymptomatic). Last mammogram was performed 1 year(s) and 6 month(s) ago. Patient History: Menarche at age 14. Patient has no children. Postmenopausal. Hormonal Contraceptives, from age 31 until age 40. Risk Values: Palak 5 year model risk: 1.8%. NCI Lifetime model risk: 2.6%. Tissue Density: The breast tissue is heterogeneously dense. This may lower the sensitivity of mammography. Findings: Analyzed By CAD. There is no suspicious group of microcalcifications or new suspicious mass in either breast. Benign-appearing calcifications noted. There is a surgical clip within the left breast. There is increasing calcifications in the central upper aspect of the left breast particularly when compared to the exam of 06/10/2020. Recommend spot magnification view. There is increasing nodularity noted in the upper outer quadrant of the left breast. Recommend spot compression view. Overall Assessment: Incomplete: need additional imaging evaluation, BI-RAD 0 Management: Diagnostic Mammogram of the left breast. . Patient should continue monthly self-breast exams. A clinical breast exam by your physician is recommended on an annual basis. This exam should not preclude additional follow-up of suspicious palpable abnormalities. Note on Palak scores and lifetime risk: 1. A Palak score greater than 3% is considered moderate risk. If this is the case, consider specialist referral to assess eligibility for a risk reducing agent. 2. If overall lifetime risk for the development of breast cancer is 20% or higher, the patient may qualify for future screening with alternating mammogram and breast MRI. Electronically signed and approved by: Baltazar Pulliam M.D. Radiologis
== END | disposition home or self-care (01) ==
LOC: RADMAMWWP 13:34
PROVIDERS: ATTEND Family Medicine
DX: Z12.31 Encounter for screening mammogram for malignant neoplasm of breast (principal); M85.851 Other specified disorders of bone density and structure, right thigh; M85.852 Other specified disorders of bone density and structure, left thigh; Z78.0 Asymptomatic menopausal state
CPT/HCPCS: 77063; 77067; 77080

== ENCOUNTER → 2023-09-11 | Outpatient (CLI) | payer MEDICARE ==
--- NOTE | 2023-09-11 09:36 | MM ---
Reason for Exam: Follow-up at short interval from prior study. Last screening mammogram was performed 8 month(s) ago. Patient History: Menarche at age 14. Patient has no children. Postmenopausal. Hormonal Contraceptives, from age 31 until age 40. Risk Values: Palak 5 year model risk: 1.7%. NCI Lifetime model risk: 2.3%. Prior Study Comparison: 06/23/2021 Bilateral MG 3D screening mammo w/cad, Unknown. 01/09/2023 Bilateral MG 3D screening mammo w/cad, [facility]. 01/16/2023 Left MG 3D work up w/cad LT, [facility]. Tissue Density: Left: There are scattered areas of fibroglandular density. Findings: Analyzed By CAD. The pattern is stable. There are some rounded calcifications within the mid left breast, unchanged from comparison. Core markers are present within the left breast. No significant interval change is evident. Overall Assessment: Benign, BI-RAD 2 Management: Screening Mammogram of both breasts in 4 months. A negative mammogram report should not preclude additional follow up of suspicious palpable abnormalities. Patient should continue monthly self breast exam. A clinical breast exam by your physician is recommended on an annual basis and results should be correlated with mammographic findings. Note on Palak scores and lifetime risk: 1. A Palak score greater than 3% is considered moderate risk. If this is the case, consider specialist referral to assess eligibility for a risk reducing agent. 2. If overall lifetime risk for the development of breast cancer is 20% or higher, the patient may qualify for future screening with alternating mammogram and breast MRI. Electronically signed and approved by: Juan Brock D.O. Radiologis
== END | disposition home or self-care (01) ==
LOC: RADMAMWWP 09:10
PROVIDERS: ATTEND Family Medicine
DX: R92.322 Mammographic fibroglandular density, left breast (principal); Z78.0 Asymptomatic menopausal state
CPT/HCPCS: 77065; G0279; 77061

== ENCOUNTER → 2024-01-20 | Outpatient (CLI) | payer MEDICARE ==
--- NOTE | 2024-01-21 08:45 | MM ---
Reason for Exam: Screening (asymptomatic). Last screening mammogram was performed 12 month(s) ago. Patient History: Menarche at age 14. Patient has no children. Postmenopausal. Hormonal Contraceptives, from age 31 until age 40. Risk Values: Palak 5 year model risk: 1.7%. NCI Lifetime model risk: 2.3%. Prior Study Comparison: 01/09/2023 Bilateral MG 3D screening mammo w/cad, [facility]. 01/16/2023 Left MG 3D work up w/cad LT, [facility]. 09/11/2023 Left MG 3D diag mammo w/cad LT, [facility]. Tissue Density: There are scattered areas of fibroglandular density. Findings: Analyzed By CAD. There is no suspicious group of microcalcifications or new suspicious mass in either breast. Overall Assessment: Benign, BI-RAD 2 Management: Screening Mammogram of both breasts in 1 year. . Patient should continue monthly self-breast exams. A clinical breast exam by your physician is recommended on an annual basis. This exam should not preclude additional follow-up of suspicious palpable abnormalities. Note on Palak scores and lifetime risk: 1. A Palak score greater than 3% is considered moderate risk. If this is the case, consider specialist referral to assess eligibility for a risk reducing agent. 2. If overall lifetime risk for the development of breast cancer is 20% or higher, the patient may qualify for future screening with alternating mammogram and breast MRI. [facility], , 01/21/2024 8:28 AM. Electronically signed and approved by: Chico Guerrero M.D. Radiologis
== END | disposition home or self-care (01) ==
LOC: RADMAMWWP 14:00
PROVIDERS: ATTEND Family Medicine
DX: Z12.31 Encounter for screening mammogram for malignant neoplasm of breast
CPT/HCPCS: 77063; 77067